=== PATIENT | female | born 1950 | race Caucasian/White ===

== ENCOUNTER 2022-02-28 09:21 | Day surgery (SDC) | payer OTHER ==
--- NOTE | 2022-02-24 16:30 | RAD REPORT ---
EXAM DESCRIPTION: RAD - Chest Pa And Lat (2 Views) - 02/24/2022 4:22 pm CLINICAL HISTORY: Pre op pending cholecystectomy Chest pain. COMPARISON: No comparisons FINDINGS: The lungs are clear. The heart is normal in size. No displaced fractures. IMPRESSION: No acute or concerning finding suspected.
[2022-02-24 16:51] LABS: Bilirubin Direct 0.1 mg/dL (0-0.2); Bilirubin Total 0.4 mg/dL (0.2-1.0); Protein, Total 7.6 g/dL (6.4-8.2)
--- NOTE | 2022-02-25 17:39 | EKG ---
Test Date: 2022-02-24 Test Time: 16:07:31 Extrusion Die Coordinator: MATA MEASUREMENT RESULTS: Intervals: Rate: 67 VT: 142 QRSD: 82 QT: 396 QTc: 418 [place]: P: 50 VT: 142 QRS: -1 T: 54 INTERPRETIVE STATEMENTS: Sinus rhythm with premature atrial complexes Otherwise normal ECG No previous ECG available for comparison Electronically Signed On 02-25-22 17:37:30 HOME THERAPY CLINICIAN by Ever [place]
[2022-02-28] MEDS ORDERED: Ringers Lactate 1,000 ML IV ONE ×2 (09:35→13:22)
[2022-02-28] MEDS ORDERED: ROCURONIUM 50 MG/5 ML VIAL IV ONE (10:01)
[2022-02-28] MEDS ORDERED: dexAMETHasone 10 MG/ML VIAL ONE (10:01)
[2022-02-28] MEDS ORDERED: LIDOCAINE 2% MPF 5 ML VIAL ONE (10:01)
[2022-02-28] MEDS ORDERED: propofoL 200 MG/20 ML VIAL IV ONE (10:01)
[2022-02-28] MEDS ORDERED: FENTANYL CITR 100 MCG/2 ML ONE (10:01)
[2022-02-28] MEDS ORDERED: MIDAZOLAM HCL 2 MG/2 ML INJ ONE (10:01)
[2022-02-28] MEDS ORDERED: ONDANSETRON 4 MG/2 ML VIAL ONE (10:04)
[2022-02-28] MEDS ORDERED: ACETAMINOPHEN 500 MG TAB ONE (10:04)
[2022-02-28] MEDS ORDERED: CELECOXIB 100 MG CAPSULE ONE (10:04)
[2022-02-28] MEDS ORDERED: CEFOXITIN SODIUM 1 GM/VIAL ONE (10:15)
[2022-02-28] MEDS ORDERED: GLYCOPYRROLATE 0.2 MG/ML SYR ONE (10:56)
[2022-02-28] MEDS ORDERED: Mastisol Adhesive Liq ONE (11:16)
--- NOTE | 2022-02-28 11:27 | P.BOP ---
Preoperative diagnosis: RUQ abd pain, symptomatic cholelithiasis Postoperative diagnosis: same Primary procedure: Laparoscopic cholecystectomy Clerical Warehouse Worker: Dary Ordonez (Bonny) Estimated blood loss: <10cc Specimen: GB Findings: as above Anesthesia: General Complications: None Transferred to: Recovery Room Condition: Good
[2022-02-28] MEDS: LABETALOL HCL 100 MG/20 ML ONE ×3 (11:54→13:20)
[2022-02-28] MEDS: HYDROMORPHONE HCL 1 MG/ML INJ ONE ×2 (11:55→12:05)
[2022-02-28 14:16] VITALS: TEMP 97.6
[2022-02-28 15:10] VITALS: BP 148/62; O2SAT 100
--- NOTE | 2022-03-01 19:58 | OP ---
Surgeon: René Santos MD Label Fuser Tender: Dary Zapata. Preoperative Diagnoses: Right upper quadrant abdominal pain, symptomatic cholelithiasis. Postoperative Diagnoses: Right upper quadrant abdominal pain, symptomatic cholelithiasis. Procedure: Laparoscopic cholecystectomy. Estimated Blood Loss: Less than 10 cc. Specimen: Gallbladder. Finding: As above. Anesthesia: General plus local. Complications: None. Indications: This is a case of a female who comes to us with the above diagnosis. Fully explained t he benefits, alternatives, and risks of laparoscopic possible open cholecystectomy, which include, bu t are not limited to infection, bleeding, damage to adjacent structures, anesthesia complication, cho ledocholithiasis, bile leak, pancreatitis, DE, and even . She also understands this may not rel ieve any symptoms and she might need more than one surgical intervention. She understood, signed a c onsent. Procedure In Detail: Patient was brought to the operating room and placed in supine position. Anest hesia was given without complication. Abdominal area was prepped and draped in a sterile fashion. M arcaine 0.5% was injected for local anesthetic, followed by sharp incision of the skin in the infraum bilical region. Incision was carried down to fascia, which was opened under direct vision. Peritone um was encountered and opened under direct vision. Vicryl #1 placed inside the fascia. Jena troca r was carefully introduced. Pneumoperitoneum was obtained. I placed 3 more trocars, 5 mm each one o f them, 1 epigastric area and 2 in the right upper quadrant using same technique, which consisted of local anesthetic, sharp incision of the skin, and introduction of the trocars under direct vision. T his allowed me to put a grasper in the fundus of the gallbladder and another grasper in the infundibu lum, retracting the gallbladder in the inferolateral fashion exposing the triangle of Calot and obtai dillon critical view. The cystic duct and cystic artery were clearly isolated, freed circumferentially and a connection between those and the gallbladder were clearly identified. I proceeded to ligate t hose by using at least 3 clips proximal, 1 clip distal, and ligation in middle. Same was done with t chuyita cystic artery. No bile leak. No bleeding. The gallbladder was removed from liver using Bovie ca uterizer and removed from abdominal cavity using Endo Catch through the umbilical incision. The area was inspected once again. No bile leak. No bleeding. At that moment, I proceeded to remove the tr ocars under direct vision, deflated the pneumoperitoneum, and closed the fascia with #1 Vicryl. Irri gated subcutaneous tissue and closed that with 3-0 chromic and the skin with 3-0 chromic in a subcuti cular fashion with Steri-Strips on top. Sponge count and instrument counts were correct. Patient to lerated the procedure well. Patient was sent to recovery in stable condition. OLIVERIO/TALHA Voice ID: [id number] Report ID: [id number]
--- NOTE | 2022-03-01 20:01 | DS ---
Date of Discharge: 02/28/2022 Diagnoses: Symptomatic cholelithiasis and acute cholecystitis. Procedure: Laparoscopic cholecystectomy. Disposition: Home. Activity: As tolerated. No heavy lifting. Follow Up: In my office in 1 week. Call for appointment [phone]. Discharge Instructions: Keep area dry for 48 hours, then may shower. Keep Steri-Strips intact. CHELA Voice ID: [id number] Report ID: [id number]
== END 2022-02-28 14:42 | disposition home or self-care (01) ==
LOC: OR 09:21
PROVIDERS: ATTEND Surgery
PROC: 0FT44ZZ Resection of Gallbladder, Percutaneous Endoscopic Approach (ICD-10-PCS; principal; 2022-02-28 11:45)
DX: K80.10 Calculus of gallbladder with chronic cholecystitis without obstruction (principal); R10.11 Right upper quadrant pain
CPT/HCPCS: 93005; 36415; 82150; 80076; 88304; 83690; 71046; 47562; J2704; J2001; J2250; J3010; J1100; J1170; J7120 ×2; J0694; J2405